=== PATIENT | female | born 1990 | race Two or more races ===

== ENCOUNTER 2016-05-27 10:10 | Observation (INO) | payer MEDICAID | END 2016-05-27 12:10 | disposition home or self-care (01) | DRG 566 | LOC: LDRP 10:10 | PROVIDERS: ADMIT Specialist; ATTEND Specialist | DX: O48.0 Post-term pregnancy (principal); O26.893 Other specified pregnancy related conditions, third trimester; Z87.891 Personal history of nicotine dependence; M54.5 Low back pain; Z3A.40 40 weeks gestation of pregnancy | CPT/HCPCS: 59025; 76818; 81002; G0378 ==

== ENCOUNTER 2016-05-30 08:55 | Observation (INO) | payer MEDICAID ==
[2016-05-30 10:26] LABS: Urine Bilirubin Negative (Negative); Urine Blood Negative /uL (Negative); Urine Color Yellow (Yellow); Urine Glucose Normal (Normal); Urine Ketone Negative (Negative); Urine Mucus FEW (None Seen); Urine Nitrite Negative (Negative); Urine RBC 13 /hpf (0 - 4); Urine Squamous Epithelial Cell MOD /hpf (<5); Urine Urobilinogen Normal (Negative); Urine pH 6.5 (5.0-8.0)
== END 2016-05-30 10:55 | disposition home or self-care (01) | DRG 566 ==
LOC: LDRP 08:55
PROVIDERS: ADMIT Obstetrics & Gynecology; ATTEND Obstetrics & Gynecology
DX: O48.0 Post-term pregnancy (principal); O26.893 Other specified pregnancy related conditions, third trimester; N89.8 Other specified noninflammatory disorders of vagina; Z3A.40 40 weeks gestation of pregnancy; Z87.891 Personal history of nicotine dependence
CPT/HCPCS: 59025; 76818; 81001; 81002; G0378

== ENCOUNTER 2016-06-01 20:21 | Observation (INO) | payer MEDICAID | END 2016-06-01 22:50 | disposition home or self-care (01) | DRG 566 | LOC: LDRP 20:21 | PROVIDERS: ADMIT Specialist; ATTEND Specialist | DX: O48.0 Post-term pregnancy (principal); O26.893 Other specified pregnancy related conditions, third trimester; N89.8 Other specified noninflammatory disorders of vagina; Z87.891 Personal history of nicotine dependence; Z3A.40 40 weeks gestation of pregnancy | CPT/HCPCS: 59025; 76818; 81002; G0378 ==

== ENCOUNTER 2016-06-03 20:57 | Observation (INO) | payer MEDICAID | END 2016-06-03 22:36 | disposition home or self-care (01) | DRG 566 | LOC: LDRP 20:57 | PROVIDERS: ADMIT Specialist; ATTEND Specialist | DX: O48.0 Post-term pregnancy (principal); O26.893 Other specified pregnancy related conditions, third trimester; N89.8 Other specified noninflammatory disorders of vagina; Z3A.41 41 weeks gestation of pregnancy; Z87.891 Personal history of nicotine dependence | CPT/HCPCS: 59025; 76818; 81002; G0378 ==

== ENCOUNTER 2016-06-04 18:00 | Inpatient (IN) | payer MEDICAID ==
[~2016-06-04] VITALS: Ht 172.7 cm; Wt 110.7 kg
[2016-06-04] MEDS ORDERED: LIDOCAINE 2%HCL (LOCAL ANESTH.) INJ 20ML MDV IJ PRN (19:00)
[2016-06-04] MEDS ORDERED: METHYLERGONOVINE MALEATE 0.2 MG/ML AMP IM PRN (19:00)
[2016-06-04] MEDS ORDERED: LACT. RINGERS/OXYTOCIN 20UNITS 1,000 ML IV SCH (19:00)
[2016-06-04] MEDS ORDERED: PHISODERM TOP SOLN 240ML BTL TOP PRN (19:00)
[2016-06-04] MEDS ORDERED: NALBUPHINE HCL 10 MG/1ml INJECTION IV PRN (19:00)
[2016-06-04] MEDS ORDERED: WITCH HAZEL-GLYCERIN PAD TOP PRN (19:00)
[2016-06-04] MEDS ORDERED: PROMETHAZINE HCL 25 MG/ML 1ML IV PRN (19:00)
[2016-06-04] MEDS ORDERED: DERMOPLAST 60ML BOTTLE TOP PRN (19:00)
[2016-06-04 19:19] LABS: Urine Bilirubin Negative (Negative); Urine Blood Negative /uL (Negative); Urine Color Yellow (Yellow); Urine Glucose Normal (Normal); Urine Ketone Negative (Negative); Urine Nitrite Negative (Negative); Urine RBC <1 /hpf (0 - 4); Urine Squamous Epithelial Cell MOD /hpf (<5); Urine Urobilinogen Normal (Negative)
[2016-06-04 19:46] LABS: Basophils # (auto) 0 uL; Basophils % (auto) 0.3 % (0.0-2.0); Eosinophils # (auto) 0.1 uL; Eosinophils % (auto) 0.7 % (0.0-7.0); Hematocrit 37.6 % (36.0-46.0); Hemoglobin 12.1 g/dL (12.2-16.2); Lymphocytes % (auto) 24.7 % (10.0-50.0); Mean Corpuscular Hemoglobin 28.1 pg (28.0-32.0); Mean Corpuscular Hgb Conc. 32.3 g/dL (32.0-36.0); Mean Corpuscular Volume 86.9 fL (80.0-100.0); Mean Platelet Volume 10.7 fL (7.4-10.4); Monocytes # (auto) 0.9 uL; Monocytes % (auto) 10.5 % (0.0-12.0); Neutrophils # (auto) 5.2 uL; Neutrophils % (auto) 63.8 % (37.0-80.0); Platelet Count (auto) 268 10^3/uL (140-450); White Blood Cell 8.2 10^3/uL (4.4-10.8)
[2016-06-04 19:58] LABS: Albumin 2.6 g/dL (3.4-5.0); BUN/Creatinine Ratio 11.5; Calcium 8.5 mg/dL (8.5-10.1); Potassium 3.9 mmol/L (3.5-5.1)
[2016-06-04 20:01] LABS: Bilirubin, Total 0.1 mg/dL (0.2-1.0); Total Protein 6.7 g/dL (6.4-8.2)
[2016-06-04 20:02] LABS: INR 0.95 (0.9-1.15); Partial Thromboplastin Time 28.7 sec (22.64-33.71); Prothrombin Time 9.8 sec (9.37-12.3)
[2016-06-04] MEDS: LACTATED RINGER'S 1,000 ML IV SCH (21:42)
[2016-06-04] MEDS ORDERED: PENICILLIN G POT 5MIL/D5 50ML 50 ML IV ONE (22:00)
[2016-06-04] MEDS: PENICILLIN G POTASSIUM 2,500,000 UNITS in D5W 5% 50 ML IV SCH (22:19)
[2016-06-05] VITALS (9 sets, daily range): BP systolic 110–132; BP diastolic 60–75
[2016-06-05] MEDS: PENICILLIN G POTASSIUM 2,500,000 UNITS in D5W 5% 50 ML IV SCH ×4 (02:00→14:30)
[2016-06-05] MEDS: LACTATED RINGER'S 1,000 ML IV SCH ×3 (03:00→21:30)
[2016-06-05] MEDS ORDERED: TERBUTALINE SULFATE 1 MG/ML 1ML VIAL SC ONE (14:09)
[2016-06-05] MEDS ORDERED: SODIUM CHLORIDE LOCK 20 ML ONE (14:25)
[2016-06-05] MEDS ORDERED: fentaNYL CITRATE 100 MCG/2 ML VL ONE (14:25)
[2016-06-05] MEDS ORDERED: ceFAZolin 1GM VL ONE (14:25)
[2016-06-05] MEDS ORDERED: OXYTOCIN 10 UNIT/ML 10ML VIAL ONE (14:25)
[2016-06-05] MEDS ORDERED: MORPHINE SULF(PF) 0.5MG/ML 10ML VIAL ONE (14:25)
[2016-06-05] MEDS ORDERED: MIDAZOLAM HCL 1MG/1ML-2 ML VIAL ONE (14:25)
[2016-06-05] MEDS ORDERED: ePHEDrine SULFATE 50 MG/ML AMP ONE (14:25)
[2016-06-05] MEDS ORDERED: SUCCINYLCHOLINE CHLORIDE 20 MG/ML 10ML VIAL IV ONE (14:26)
[2016-06-05] MEDS ORDERED: TETRACAINE 1% INJ 2 ML VIAL IJ ONE (14:26)
[2016-06-05] MEDS ORDERED: HYDROmorphone HCL 2 MG/ML VL IV PRN ×2 (15:45→16:15)
[2016-06-05] MEDS ORDERED: KETOROLAC TROMETH 30 MG/ML 1ML VIAL IV PRN (15:45)
[2016-06-05] MEDS ORDERED: LACT. RINGERS/OXYTOCIN 20UNITS 1,000 ML IV SCH (15:45)
[2016-06-05] MEDS ORDERED: ONDANSETRON HCL 4 MG/2 ML VIAL IV PRN (16:00)
[2016-06-05] MEDS ORDERED: HYDROmorphone HCL 2 MG/ML VL IV ONE (16:00)
[2016-06-05] MEDS ORDERED: KETOROLAC TROMETH 30 MG/ML 1ML VIAL IV ONE (16:15)
[2016-06-05] MEDS ORDERED: ONDANSETRON HCL 4 MG/2 ML VIAL IV ONE (16:15)
[2016-06-05] MEDS ORDERED: diphenhdrAMINE HCL 50 MG/1 ML VL IV PRN (16:15)
[2016-06-05] MEDS ORDERED: NALOXONE HCL 0.4 MG/ML VIAL IV PRN (16:15)
[2016-06-05 17:44] LABS: Basophils # (auto) 0 uL; Basophils % (auto) 0.3 % (0.0-2.0); Eosinophils # (auto) 0 uL; Eosinophils % (auto) 0.5 % (0.0-7.0); Hematocrit 35.4 % (36.0-46.0); Hemoglobin 11.5 g/dL (12.2-16.2); Lymphocytes # (auto) 1.6 uL; Lymphocytes % (auto) 20.2 % (10.0-50.0); Mean Corpuscular Hemoglobin 28.1 pg (28.0-32.0); Mean Corpuscular Hgb Conc. 32.4 g/dL (32.0-36.0); Mean Corpuscular Volume 86.9 fL (80.0-100.0); Mean Platelet Volume 10.4 fL (7.4-10.4); Monocytes # (auto) 0.5 uL; Monocytes % (auto) 6.6 % (0.0-12.0); Neutrophils # (auto) 5.7 uL; Neutrophils % (auto) 72.4 % (37.0-80.0); Platelet Count (auto) 219 10^3/uL (140-450); Red Cell Distribution Width 15.9 % (11.6-16.0); White Blood Cell 7.9 10^3/uL (4.4-10.8)
[2016-06-05] MEDS: KETOROLAC TROMETH 30 MG/ML 1ML VIAL IV SCH (18:05)
[2016-06-05] MEDS: ceFAZolin 1GM/50ML D5W 50 ML IV SCH (22:00)
[2016-06-05] MEDS ORDERED: ceFAZolin 1GM/50ML D5W 50 ML IV SCH (22:00)
[2016-06-06] VITALS (10 sets, daily range): BP systolic 98–128; BP diastolic 37–84
[2016-06-06] MEDS: KETOROLAC TROMETH 30 MG/ML 1ML VIAL IV SCH ×2 (00:23→05:46)
[2016-06-06] MEDS: ceFAZolin 1GM/50ML D5W 50 ML IV SCH ×2 (05:47→14:29)
[2016-06-06 06:53] LABS: Basophils # (auto) 0.1 uL; Basophils % (auto) 0.8 % (0.0-2.0); Eosinophils # (auto) 0 uL; Eosinophils % (auto) 0.2 % (0.0-7.0); Hematocrit 35.4 % (36.0-46.0); Hemoglobin 11.6 g/dL (12.2-16.2); Lymphocytes # (auto) 1.7 uL; Lymphocytes % (auto) 21.4 % (10.0-50.0); Mean Corpuscular Hemoglobin 28.9 pg (28.0-32.0); Mean Corpuscular Hgb Conc. 32.7 g/dL (32.0-36.0); Mean Corpuscular Volume 88.4 fL (80.0-100.0); Mean Platelet Volume 10.1 fL (7.4-10.4); Monocytes # (auto) 0.6 uL; Monocytes % (auto) 7.8 % (0.0-12.0); Neutrophils # (auto) 5.7 uL; Neutrophils % (auto) 69.8 % (37.0-80.0); Platelet Count (auto) 202 10^3/uL (140-450); Red Cell Distribution Width 14.9 % (11.6-16.0); White Blood Cell 8.1 10^3/uL (4.4-10.8)
[2016-06-06] MEDS ORDERED: PRENCAP61 PO (07:04)
[2016-06-06] MEDS ORDERED: CETI1TAB36 PO (07:06)
[2016-06-06] MEDS ORDERED: BISACODYL 10 MG RECT SUPP PR PRN ×2 (08:45→08:48)
[2016-06-06] MEDS ORDERED: DOCUSATE CALCIUM 240 MG CAP PO PRN (10:00)
[2016-06-06] MEDS: IBUPROFEN 800 MG TAB PO PRN ×2 (11:22→22:55)
[2016-06-06] MEDS: DOCUSATE SOD 100 MG CAP PO SCH ×2 (11:22→22:47)
[2016-06-06] MEDS: SIMETHICONE 80 MG CHEWABLE TABLET PO SCH ×3 (11:32→22:47)
[2016-06-06] MEDS: DOCUSATE CALCIUM 240 MG CAP PO SCH (12:23)
[2016-06-06] MEDS: HYDROcodone-ACET 10/325MG TAB PO PRN ×2 (15:51→20:45)
[2016-06-06] MEDS ORDERED: PHISODERM TOP SOLN 240ML BTL TOP PRN (21:15)
[2016-06-07] MEDS: SIMETHICONE 80 MG CHEWABLE TABLET PO SCH ×4 (06:00→22:00)
[2016-06-07] MEDS: IBUPROFEN 800 MG TAB PO PRN ×3 (07:00→23:15)
[2016-06-07] MEDS: HYDROcodone-ACET 10/325MG TAB PO PRN ×4 (07:00→20:57)
[2016-06-07] MEDS: DOCUSATE SOD 100 MG CAP PO SCH ×2 (10:00→22:00)
[2016-06-07] MEDS: DOCUSATE CALCIUM 240 MG CAP PO SCH (10:00)
[2016-06-07 19:30] VITALS: BP 120/84
[2016-06-07 23:30] VITALS: BP 130/70
[2016-06-08 04:00] VITALS: BP 120/80
[2016-06-08] MEDS: HYDROcodone-ACET 10/325MG TAB PO PRN ×2 (04:21→10:39)
[2016-06-08] MEDS: SIMETHICONE 80 MG CHEWABLE TABLET PO SCH ×2 (06:00→09:50)
[2016-06-08 07:45] VITALS: BP 109/72
[2016-06-08] MEDS: IBUPROFEN 800 MG TAB PO PRN (09:49)
[2016-06-08] MEDS: DOCUSATE CALCIUM 240 MG CAP PO SCH (09:49)
[2016-06-08] MEDS: DOCUSATE SOD 100 MG CAP PO SCH (09:50)
[2016-06-08 12:00] VITALS: BP 111/82
== END 2016-06-08 14:35 | disposition home or self-care (01) | DRG 540 ==
LOC: LDRP 18:00
PROVIDERS: ADMIT Obstetrics & Gynecology; ATTEND Obstetrics & Gynecology
PROC: 10D00Z1 Extraction of Products of Conception, Low, Open Approach (ICD-10-PCS; principal; 2016-06-05 14:52)
DX: O48.0 Post-term pregnancy (principal); O61.9 Failed induction of labor, unspecified; O99.824 Streptococcus B carrier state complicating childbirth; O62.1 Secondary uterine inertia; O77.0 Labor and delivery complicated by meconium in amniotic fluid; Z37.0 Single live birth; Z3A.41 41 weeks gestation of pregnancy
CPT/HCPCS: 36415; 51703; 59025; 80053; 81001; 85025; 85049; 85610; 85730; 86850; 86900; 86901; 94762; 96365; 96366; 96372; 96374; J0330; J0690; J1885; J2250; J2540; J2590; J7060

== ENCOUNTER 2023-12-19 10:39 | Emergency (ER) | payer MEDICAID ==
[~2023-12-19] VITALS: Ht 170.2 cm; Wt 130.7 kg
[~2023-12-19 10:39] MED LIST: CETI1TAB36 PO; PRENCAP61 PO
[2023-12-19 11:13] LABS: Urine Bacteria FEW /hpf (None Seen); Urine Blood Negative /uL (Negative); Urine Clarity Clear (Clear); Urine Color Light-Yellow (Yellow); Urine Mucus FEW (None Seen); Urine Protein, UAD TRACE (Negative); Urine Specific Gravity 1.028 (1.001-1.035); Urine Urobilinogen Normal (Negative); Urine WBC 1 /hpf (0 - 5)
[2023-12-19 11:36] LABS: Basophils # (auto) 0 10 ^3/uL (0-0.2); Basophils % (auto) 0.6 % (0.0-2.0); Eosinophils # (auto) 0.1 10 ^3/uL (0-0.8); Hemoglobin 12.3 g/dL (12.2-16.2); Lymphocytes # (auto) 2.4 10 ^3/uL (0.4-5.4); Lymphocytes % (auto) 40.4 % (10.0-50.0); Mean Corpuscular Hemoglobin 27.7 pg (28.0-32.0); Mean Corpuscular Hgb Conc. 33.3 g/dL (32.0-36.0); Mean Corpuscular Volume 83.2 fL (80.0-100.0); Monocytes # (auto) 0.6 10 ^3/uL (0-1.3); Monocytes % (auto) 9.3 % (0.0-12.0); Neutrophils # (auto) 2.9 10 ^3/uL (1.6-8.6); Neutrophils % (auto) 47.7 % (37.0-80.0); Nucleated Red Blood Cells % 0.1 %; Red Blood Cells 4.44 10^6/uL (4.0-5.20); Red Cell Distribution Width 15.9 % (11.8-14.3)
[2023-12-19 11:44] LABS: Chloride 106 mmol/L (98-107); Potassium 3.9 mmol/L (3.5-5.1); Sodium 138 mmol/L (136-145)
[2023-12-19 11:45] LABS: Anion Gap 5 (5-15); Calcium 9.8 mg/dL (8.7-10.4); Carbon Dioxide 27 mmol/L (20-30)
[2023-12-19 11:50] LABS: BUN/Creatinine Ratio 13.8 (10.0-20.0); Blood Urea Nitrogen 11 mg/dL (9-23); Glucose 117 mg/dL (74-106)
[2023-12-19 13:11] VITALS: BP 124/87; PULSE 90; RESP 15; TEMP 98.1; O2SAT 98
== END 2023-12-19 13:14 | disposition home or self-care (01) ==
LOC: ER 10:39
DX: R22.41 Localized swelling, mass and lump, right lower limb (principal); Z32.02 Encounter for pregnancy test, result negative
CPT/HCPCS: 36415; 80048; 81001; 81025; 85025; 85379; 93971